=== PATIENT | male | born 1950 | race Caucasian/White ===

== ENCOUNTER 2021-09-17 02:53 | Outpatient (CLI) | payer MEDICARE, MEDICAID, SELFPAY ==
--- NOTE | 2021-09-17 08:45 | DI.NM_ITS ---
APPROVED REPORT Exam: Pharmacologic Patient Location: Out-Patient Room/Bed: Stress Nurse: Claudia Sheriff RN Ordering Provider:SADAF SETH MD Contact Number: [phone] BMI: 29.34 Baseline Rhythm: Sinus Bradycardia Comment: Inverted T waves ant, inf, and lat leads, IVCD Indications: Cardiomyopathy, CAD Medical History Medical History: Hypertension, hyperlipidemia, obesity, CAD, cardiomyopathy Cardiac Medications: Aspirin, entresto, eplerenone, farxiga, metoprolol succinate, simvastatin Allergies: NKDA Cardiac Risk Factors: Hypertension, hyperlipidemia, obesity, family hx Previous Cardiac Procedures: PCI, CABG x1, aortic valve replacement (2012) Pretest Chest Pain Characteristics: None Exercise History: Physically active Physical Disabilities: None Lung Sounds: Clear to auscultation Heart Sounds: Regular, murmur Stress Test Details Test: Pharmacologic stress was paired with low level exercise. Reason for pharmacologic stress test: Inverted T waves, IVCD. Nuclear Acquisition: Rest Tc-99m/Stress Tc-99m 1 day Rest Isotope: Tc-99m Sestamibi. Dose: 10.3 Date: 09/17/2021 Injection Time: 0900 Stress Isotope: Tc-99m Sestamibi. Dose: 33.0 Date: 09/17/2021 Injection Time: 1033 HR Resting HR Supine: 55 bpm Max Heart Rate (APMHR): 148.363370 bpm Resting HR Standin bpm Target HR (85% APMHR): 125.377334 bpm Max HR Achieved: 104 bpm % of APMHR: 70.27 Recovery HR: 80 bpm Comment: Metoprolol succinate held for 24 hrs BP Resting BP Supine: 112/74 mmHg Resting BP Standin/72 mmHg Max BP: 112/74 mmHg Recovery BP: 104/68 mmHg ECG Resting ECG: Sinus Rhythm Ectopy: Rare PVC Comment: Inverted T waves ant, inf, and lat leads, IVCD Stress ECG: Sinus Tachycardia ST Change: Nondiagnostic resting ST abnormalities Arrhythmia: None Recovery ECG: Sinus Rhythm Recovery ST Change: Nondiagnostic resting ST abnormalities Recovery Arrhythmia: None Clinical Stress Symptoms: General Fatigue, Dyspnea Exercise duration: 3 min53 sec Exercise capacity: 1.61 METs Rate Pressure Product: [id number] Stress ECG Conclusion 1. Resting electrocardiogram showed an IVCD, old anterior infarct 2. Patient underwent low-level exercise, coupled with pharmacologic stress with regadenoson 3. Blunted hemodynamics. Peak heart rate achieved was 70% of maximal predicted for age 4. The electrocardiographic portion of the test was nondiagnostic due to inadequate heart rate 5. See MPI report Stress Test Summary STAGE HR BP Symptoms NOTES Supine 55 112/74 SpO2 93% 1 min post Lexiscan injection 82 102/68 SpO2 92% Mild SOB 3 min post Lexiscan injection 91 102/64 SpO2 95% Mild SOB 6 min post Lexiscan injection 80 104/68 SpO2 95% SOB resolved Pharmacologic stress was paired with low level exercise at 0.8 mph and 0% grade due to inverted T wav es in ant, inf, and lateral leads and IVCD. Pt tolerated Regadenoson with low level exercise well. MPI Conclusion There is a large area of infarction involving the entire distal heart (anteroseptal, apical, anterola teral inferoapical) There is no additional ischemia EF is 14% Radiologist Interpretation Radiologist agrees with Associate Professor Of [employer]'s Interpretation. Radiologist Interpretation by: Leticia Guzman MD Interpretation Date/Time: 09/17/2021 16:35:47
[2021-09-17] MEDS: Regadenoson 0.4 MG/5 ML SYR IVP (10:27)
== END 2021-09-17 03:13 ==
PROVIDERS: PCP Nurse Practitioner Family; Visit Provider Internal Medicine Interventional Cardiology
DX: I25.10 Atherosclerotic heart disease of native coronary artery without angina pectoris (principal)
CPT/HCPCS: 78452; 93016; 93018; 93017; J2785

== ENCOUNTER 2022-05-05 07:51 | Outpatient (CLI) | payer MEDICARE, MEDICAID, SELFPAY | END 2022-05-05 07:52 | disposition home or self-care (01) | LOC: DI.CARD 07:51 | PROVIDERS: PCP Nurse Practitioner Family; Visit Provider Physician Assistant | CPT/HCPCS: 93010 ==

== ENCOUNTER 2022-09-01 08:21 | Outpatient (CLI) | payer MEDICARE, MEDICAID, SELFPAY ==
--- NOTE | 2022-09-01 08:15 | RT.EKG_ITS ---
APPROVED REPORT Exam: Resting ECG Reason for Exam: CAD Patient Location: O HR:88 bpm ECG Measurements Heart Rate 88 AXIS NV 134 P 20 QRSd 111 QRS 206 QT 381 T 61 QTc 461 Conclusion Sinus rhythm...normal P axis, V-rate 50- 99 Anterolateral infarct, age indeterminate...Q >35mS, flat/neg T, V3-V6,I,aVL
== END 2022-09-01 08:22 | disposition home or self-care (01) ==
LOC: DI.CARD 08:31
PROVIDERS: PCP Nurse Practitioner Family; Visit Provider Physician Assistant
DX: I25.10 Atherosclerotic heart disease of native coronary artery without angina pectoris (principal); I42.9 Cardiomyopathy, unspecified; I25.2 Old myocardial infarction
CPT/HCPCS: 93010

== ENCOUNTER → 2022-09-01 10:35 | Outpatient (BNVA) | payer MEDICARE, MEDICAID, SELFPAY | PROVIDERS: PCP Nurse Practitioner Family; Referring Provider Nurse Practitioner Family; Visit Provider Physician Assistant | DX: Z95.810 Presence of automatic (implantable) cardiac defibrillator (principal); I25.10 Atherosclerotic heart disease of native coronary artery without angina pectoris; I42.8 Other cardiomyopathies; I27.21 Secondary pulmonary arterial hypertension; R00.2 Palpitations | CPT/HCPCS: 93005; 93282; 99203 ==

== ENCOUNTER 2022-09-16 08:45 | Outpatient (CLI) | payer MEDICARE, MEDICAID, SELFPAY | END 2022-09-16 08:46 | disposition home or self-care (01) | PROVIDERS: PCP Nurse Practitioner Family; Visit Provider Physician Assistant | DX: R00.2 Palpitations | CPT/HCPCS: 93246 ==

== ENCOUNTER 2022-10-11 08:56 | Outpatient (CLI) | payer MEDICARE, MEDICAID, SELFPAY ==
--- NOTE | 2022-10-11 09:18 | W.CARDEVENT ---
Date of service: 10/11/22 Time of Service: 09:18 Cardiac Event Recorder Referring Provider:: Angelito Schmidt Indications:: Cardiomyopathy, CAD Cardiac Event Note: This is a 14-day cardiac event monitor Predominant rhythm was sinus with an average heart rate of 66. Minimum was 45, maximum 113 There were frequent ventricular ectopic beats comprising 7.21% of total. There were periods of bigeminy, ventricular couplets. A total of 103 brief runs of nonsustained ventricular tachycardia occurred. The longest of these was 6 beats in duration There were frequent atrial premature beats comprising 6.31% of total. There were multiple brief self-limited atrial runs. One occurrence of SVT lasted 64 beats and appeared to be atrial tachycardia There was no atrial fibrillation, no high-grade AV block No patient symptoms were reported
== END 2022-10-11 08:57 | disposition home or self-care (01) ==
LOC: CARDOPNVT 08:56
PROVIDERS: PCP Nurse Practitioner Family; Visit Provider Internal Medicine Cardiovascular Disease
DX: I42.9 Cardiomyopathy, unspecified (principal); I25.10 Atherosclerotic heart disease of native coronary artery without angina pectoris; I49.1 Atrial premature depolarization; I49.3 Ventricular premature depolarization; I47.1 Supraventricular tachycardia
CPT/HCPCS: 93248

== ENCOUNTER → 2023-09-07 10:45 | Outpatient (BNVA) | payer MEDICARE, MEDICAID, SELFPAY | PROVIDERS: PCP Nurse Practitioner Family; Referring Provider Nurse Practitioner Family; Visit Provider Physician Assistant | DX: I25.10 Atherosclerotic heart disease of native coronary artery without angina pectoris (principal); I42.9 Cardiomyopathy, unspecified | CPT/HCPCS: 93282 ==

== ENCOUNTER → 2023-11-11 01:22 | Outpatient (CLI) | payer MEDICARE, MEDICAID, SELFPAY ==
--- NOTE | 2023-11-11 07:30 | DI.US_ITS ---
APPROVED REPORT EXAM: Comprehensive 2D, Doppler, and color-flow Echocardiogram Patient Location: Out-Patient Ceramic Worker: Filippo Moon RDCS (AE) Indications: Cardiomyopathy Other Information Technically limited study due to body habitus. Conclusion Normal left ventricular wall thickness. Left ventricle is mildly dilated. Ejection fraction is 35%. Apical, anteroapical, inferoapical segments are akinetic Right ventricle appears grossly normal in size Right atrium is mildly enlarged. Left atrium is moderately dilated Device lead noted in the right heart There is a bioprosthetic aortic valve. Mean gradient is 37 mmHg. Peak gradient is 56 mmHg. Calcula [place] aortic valve area 0.6 cm?? suggesting severe aortic stenosis. There is no aortic regurgitation Mildly thickened mitral leaflets. Mild mitral annular calcification. Mild mitral regurgitation Wall motion Left Ventricle Left ventricle is mildly dilated. Left ventricular systolic function is moderately decreased. There i s normal left ventricular wall thickness. Regional wall motion abnormalities are noted. There is no v entricular septal defect visualized. LVEF is 35%. Right Ventricle Right ventricle is grossly normal in size. Right ventricular systolic function is grossly normal. Pac emaker lead is present in the right ventricle. Atria Left atrium is moderately dilated. Right atrium is mildly dilated The interatrial septum is intact wi th no evidence for an atrial septal defect. Aortic Valve Bioprosthetic aortic valve is present. Highest mean aortic valve gradient is 36.86 mmHg. Peak aortic valve gradient is 56.16 mmHg. Calculated FRANCIS by the continuity equation is 0.6 cm2. No aortic regurgi tation is present. Mitral Valve Mild mitral annular calcification. Mitral valve leaflets are thickened. No evidence of mitral valve s tenosis. Mild mitral regurgitation. Tricuspid Valve The tricuspid valve is normal in structure. There is no tricuspid valve stenosis. Trace tricuspid reg urgitation. Unable to assess PA pressure. Pulmonic Valve The pulmonary valve is normal in structure. There is no pulmonic valvular stenosis. There is no pulmo [place]ton valvular regurgitation. Great Vessels The aortic root is normal in size. The ascending aorta is normal in size. Aortic arch is not well vis ualized. IVC is normal in size and collapses >50% with inspiration. Pericardium There is no pericardial effusion. 2D Dimensions IVSD d PLAX 0.83 cm M: 0.6-1.2 Ao Root d 2.30 cm M: 3.1 - 3.7 LVPW d PLAX 0.84 cm M: 0.6 - 1.2 Ao Asc Diam d 2.50 cm M: 2.6 - 3.4 LVID d PLAX 5.52 cm M: 4.2 - 5.8 LVDs 4.57 cm M: 2.5 - 4.0 LV EF Teichholz 35.5 % FS 17.20 % LV EDV (Teich) 148.9 mL LV ESV (Teich) 96.1 mL Stroke Vol Index (Teich) 25.05 M-Mode TAPSE 1.53 cm (M/F) >1.7 Auto EF LV EDV A4C 176.1 mL LV EDV A2C 186.6 mL LV EDV BP 191.7 mL LV ESV A4C 112.5 mL LV ESV A2C 121.2 mL LV ESV BP 118.3 mL LVEF(%) A4C 36.1 % LVEF(%) A2C 35.1 % LVEF(%) BP 38.3 % LV SV A4C 63.6 ml LV SV A2C 65.4 ml LV SV BP 73.4 ml LV CO A4C 2.8 L/min LV CO A2C 3.5 L/min LV CO BP 3.1 L/min HR A4C 43.69 BPM HR A2C 52.86 BPM LV EDV Index (BP) LA Volume LA Length A4C 5.8 cm LA Length A2C 5.8 cm LA Area A4C s 18.18 cm2 LA Area A2C s 18.71 cm2 LA Vol A4C A-L 48.42 mL LA Vol A2C A-L 51.38 mL LA Vol Biplane A-L 49.9 mL LA Vol/BSA A4C A-L LA Vol/BSA A2C A-L LA Vol/BSA BP A-L 23.7 mL/m2 LA Vol A4C MOD 49.4 mL LA Vol A2C MOD 51.4 mL LA Vol BP MOD 50.3 mL LV Diastology MV E' medial 0.044 (>0.07 m/s) MV E Vmax 0.91 (0.4-1.3 m/s) MV E/E' MED 20.42 (<14) MV A Vmax 1.10 (0.4-1.3 m/s) MV E' lateral 0.055 (>0.1 m/s) E/A Ratio 0.8 MV E/E' LAT 16.45 (<14) MV E' Average 0.050 m/s MV E/E'(average) 18.22 Aortic Valve AoV Vmax 3.75 m/s LVOT Vmax 0.78 m/s AoV Peak Grad 56.2 mmHg LVOT Peak Grad 2.5 mmHg AoV Area (Vmax) 0.54 cm2 LVOT VTI 0.226 m AoV VTI 0.960 m LVOT Mean Grad 1.3 mmHg AoV Mean Javid. 2.91 m/s LVOT SV 58.60 mL AoV Mean Grad 36.9 mmHg LVOT Diam s 1.80 cm AoV Area (VTI) 0.61 cm2 Velocity Ratio 0.21 Mitral Valve MV DT 274 (160-240 msec) Pulmonary Valve RVOT Vmax 0.40 m/s RVOT Peak Gr. 0.7 mmHg RVOT VTI 0.079 m RVOT Mean Gr. 0.3 mmHg Tricuspid Valve RA Pressure 3.00 mmHg TR Vmax 1.56 m/s TR Peak Grad 9.7 mmHg RVSP (TR) 12.8 mmHg
== END ==
PROVIDERS: PCP Nurse Practitioner Family; Visit Provider Physician Assistant
DX: I42.9 Cardiomyopathy, unspecified (principal)
CPT/HCPCS: 93306

== ENCOUNTER 2024-09-05 08:29 | Outpatient (CLI) | payer MEDICARE, MEDICAID, SELFPAY ==
--- NOTE | 2024-09-05 11:00 | RT.EKG_ITS ---
APPROVED REPORT Exam: Resting ECG Reason for Exam: cad Patient Location: O HR:67 bpm ECG Measurements Heart Rate 67 AXIS [place] 135 P 33 QRSd 132 QRS 243 QT 415 T 224 QTc 438 Conclusion Sinus rhythm...normal P axis, V-rate 50- 99 Atrial premature complex...SV complex w/ short R-R interval Anterolateral infarct, age indeterminate...Q >35mS, flat/neg T, V3-V6,I,aVL
== END 2024-09-05 08:30 | disposition home or self-care (01) ==
PROVIDERS: PCP Nurse Practitioner Family; Visit Provider Student in an Organized Health Care Education/Training Program
DX: Z95.810 Presence of automatic (implantable) cardiac defibrillator (principal); I42.9 Cardiomyopathy, unspecified; I25.10 Atherosclerotic heart disease of native coronary artery without angina pectoris
CPT/HCPCS: 93010

== ENCOUNTER → 2024-09-05 10:52 | Outpatient (BNVA) | payer MEDICARE, MEDICAID, SELFPAY | PROVIDERS: PCP Nurse Practitioner Family; Referring Provider Nurse Practitioner Family; Visit Provider Registered Nurse | DX: Z45.02 Encounter for adjustment and management of automatic implantable cardiac defibrillator (principal); I42.9 Cardiomyopathy, unspecified | CPT/HCPCS: 93005; 93282; 99213 ==

== ENCOUNTER → 2025-03-06 08:59 | Outpatient (BNVA) | payer MEDICARE, MEDICAID, SELFPAY | PROVIDERS: PCP Nurse Practitioner Family; Referring Provider Nurse Practitioner Family; Visit Provider Registered Nurse | DX: I42.9 Cardiomyopathy, unspecified (principal); I25.10 Atherosclerotic heart disease of native coronary artery without angina pectoris; Z45.02 Encounter for adjustment and management of automatic implantable cardiac defibrillator; Z79.02 Long term (current) use of antithrombotics/antiplatelets | CPT/HCPCS: 93279 ==